=== PATIENT | female | born 1980 | race American Indian/Alaskan Native ===

== ENCOUNTER 2017-05-07 16:40 | Emergency (ER) | payer MEDICAID ==
--- NOTE | 2017-05-07 16:42 | ED PDOC ---
Arrival/HPI - General Time Seen by Provider: 05/07/17 16:41 Historian: Patient - History of Present Illness Narrative History of Present Illness (Text): 05/07/17 16:41 37 y/o female, no significant pmh, nkda, c/o coughing/runny nose/bodyache and fatigue x 2 days with acute onset. Productive coughing, no chest pain or shortness of breath, admits runny nose and bodyache, no recent traveling, no night sweat, no urinary symptoms, no rash, no nausea or vomiting, no other medical or psychological complaints. Past Medical History - Provider Review Nursing Documentation Reviewed: Yes Family/Social History - Physician Review Nursing Documentation Reviewed: Yes Family/Social History: Unknown Family HX Allergies/Home Meds Allergies/Adverse Reactions: Allergies CT SCAN DYE Allergy (Uncoded 05/07/17 16:43) ANAPHYLAXIS Review of Systems - Review of Systems Constitutional: Fatigue. absent: Fevers Eyes: absent: Vision Changes ENT: Rhinorrhea. absent: Hearing Changes Respiratory: Cough, Sputum. absent: SOB, Wheezing Cardiovascular: absent: Chest Pain, Palpitations Gastrointestinal: absent: Abdominal Pain, Diarrhea, Nausea, Vomiting Musculoskeletal: Myalgias. absent: Arthralgias, Back Pain Skin: absent: Rash, Pruritis Neurological: absent: Headache, Dizziness Psychiatric: absent: Anxiety, Depression, Suicidal Ideation Physical Exam Vital Signs Reviewed: Yes Vital Signs Temp Pulse Resp BP Pulse Ox 05/07/17 18:27 98.5 F 73 19 117/83 100 05/07/17 16:44 98.6 F 90 16 121/84 100 Temperature: Afebrile Blood Pressure: Normal Pulse: Regular Respiratory Rate: Normal Appearance: Positive for: Well-Appearing, Non-Toxic, Comfortable Pain Distress: None Mental Status: Positive for: Alert and Oriented X 3 - Systems Exam Head: Present: Atraumatic, Normocephalic, Other (no sinus tenderness) Pupils: Present: PERRL Extroacular Muscles: Present: EOMI Conjunctiva: Present: Normal Ears: Present: NORMAL TM, Normal Canal. No: Erythema Mouth: Present: Moist Mucous Membranes Pharnyx: Present: Normal. No: ERYTHEMA, EXUDATE, TONSILS ENLARGED Nose (Internal): Present: Normal Inspection, No Active Bleeding, Rhinorrhea. No : Septal Hematoma, Epistaxis Neck: Present: Normal Range of Motion, Trachea Midline. No: Meningeal Signs, MIDLINE TENDERNESS, Lymphadenopathy Respiratory/Chest: Present: Clear to Auscultation, Good Air Exchange. No: Respiratory Distress, Accessory Muscle Use, Wheezes, Decreased Breath Sounds, Rales, Retracting, Rhonchi, Tachypneic, Tender to Palpation Cardiovascular: Present: Regular Rate and Rhythm, Normal S1, S2. No: Murmurs Abdomen: Present: Normal Bowel Sounds. No: Tenderness, Distention, Peritoneal Signs, Rebound, Guarding Back: Present: Normal Inspection Upper Extremity: Present: Normal Inspection. No: Cyanosis, Edema Lower Extremity: Present: Normal Inspection. No: Edema Neurological: Present: GCS=15, Speech Normal, Motor Func Grossly Intact, Gait Normal, Memory Normal Skin: Present: Warm, Dry, Normal Color. No: Rashes Psychiatric: Present: Alert, Oriented x 3, Normal Insight, Normal Concentration Medical Decision Making ED Course and Treatment: 05/07/17 17:01 -rapid flu -chest xray -tylenol -observe and reassess 05/07/17 18:28 -xray wet read show no active disease -Pt. is not wheezing/crackles, vitally stable, feels better with the tylenol -Rapid flu is negative but clinical suspicious is moderate to high. -Discharge home with tamiflu, tylenol, tessalon, bed rest, follow up with your own pmd within 2 days, return to ER for any new or worsening signs or symtoms. - Lab Interpretations Lab Results: Lab Results 05/07/17 16:57: Influenza Typ A,B (EIA) Negative for flu a/b - RAD Interpretation Radiology Orders: 05/07/17 17:01 CHEST TWO VIEWS (PA/LAT) [RAD] Stat HISTORY: cough COMPARISON: None available. TECHNIQUE: Chest PA and lateral FINDINGS: LUNGS: Minimal basilar atelectasis. No focal consolidation. Please note that chest x-ray has limited sensitivity for the detection of pulmonary masses. PLEURA: No significant pleural effusion identified. No definite pneumothorax . CARDIOVASCULAR: Heart size appears within normal limits. OSSEOUS STRUCTURES: No acute osseous abnormality identified. VISUALIZED UPPER ABDOMEN: Unremarkable. OTHER FINDINGS: None. IMPRESSION: No focal consolidation identified. Minimal basilar atelectasis. Crown Assembly Machine Operator: Radiologist - Medication Orders Current Medication Orders: Discontinued Medications Acetaminophen (Tylenol 325mg Tab) 650 mg PO STAT STA Stop: 05/07/17 16:59 Last Admin: 05/07/17 17:21 Dose: 650 mg MAR Pain/Vitals Document 05/07/17 17:21 LA (Rec: 05/07/17 17:22 LA [id number]) Pain Reassessment Is This A Pain ReAssessment? No Sleep Is patient sleeping during reassessment? No Presence of Pain Presence of Pain Yes Location Pain Location Body Site Generalized Intensity 5 Scale Used Numeric - PA / PIPE ASSEMBLY WORKER / Resident Statement MD/DO has reviewed & agrees with the documentation as recorded. Disposition/Present on Arrival - Present on Arrival Any Indicators Present on Arrival: No History of DVT/PE: No History of Uncontrolled Diabetes: No Urinary Catheter: No History of Decub. Ulcer: No - Disposition Have Diagnosis and Disposition been Completed?: Yes Diagnosis: Flu-like symptoms Disposition: HOME/ ROUTINE Disposition Time: 17:01 Patient Plan: Discharge Patient Problems: Current Active Problems Problem Status Onset Flu-like symptoms Acute Condition: IMPROVED Additional Instructions: -Discharge home with tamiflu, tylenol, tessalon, bed rest, follow up with your own pmd within 2 days, return to ER for any new or worsening signs or symtoms. Prescriptions: Acetaminophen [Tylenol 325mg tab] 2 tab PO QID PRN #35 tab PRN Reason: Other Benzonatate [Tessalon Perles] 100 mg PO TID PRN #30 sgl PRN Reason: Other Oseltamivir [Tamiflu] 75 mg PO BID #10 cap Referrals: PCP,NO [Primary Care Provider] - Follow up with primary [facility] [place] [Outside] - Follow up with primary Forms: WORK NOTE
[2017-05-07 16:59] VITALS: O2SAT 100
[2017-05-07 18:28] VITALS: BP 117/83; PULSE 73; RESP 19; TEMP 98.5
--- NOTE | 2017-05-07 18:35 | RAD ---
HISTORY: cough COMPARISON: None available. TECHNIQUE: Chest PA and lateral FINDINGS: LUNGS: Minimal basilar atelectasis. No focal consolidation. Please note that chest x-ray has limited sensitivity for the detection of pulmonary masses. PLEURA: No significant pleural effusion identified. No definite pneumothorax . CARDIOVASCULAR: Heart size appears within normal limits. OSSEOUS STRUCTURES: No acute osseous abnormality identified. VISUALIZED UPPER ABDOMEN: Unremarkable. OTHER FINDINGS: None. IMPRESSION: No focal consolidation identified. Minimal basilar atelectasis.
== END 2017-05-07 19:03 | disposition home or self-care (01) ==
LOC: ED 16:40
DX: J11.1 Influenza due to unidentified influenza virus with other respiratory manifestations (principal)

== ENCOUNTER 2017-06-16 19:26 | Emergency (ER) | payer MEDICAID ==
--- NOTE | 2017-06-16 23:51 | ED PDOC ---
Arrival/HPI - General Historian: Patient - History of Present Illness Time/Duration: Other (2 days) Symptom Course: Unchanged <Brigida Patel - Last Filed: 06/16/17 23:47> <Armond Burt - Last Filed: 06/17/17 00:13> - General Chief Complaint: Female Genitourinary Time Seen by Provider: 06/16/17 20:40 - History of Present Illness Narrative History of Present Illness (Text): 06/16/17 23:47 37-year-old female presents today with concerns for vaginal irritation. Patient states she started using new pads and then noticed an irritated area along the lower aspects of the labia. Patient denies fevers or chills. Denies any urinary symptoms. Patient denies vaginal discharge. Patient states she was recently treated for a yeast infection about 3 weeks ago. Patient denies abdominal pain. No other complaints. (Brigida Patel) Past Medical History - Provider Review Nursing Documentation Reviewed: Yes - Travel History Have you recently traveled outside [place] w/in the past 3 mons?: No - Cardiac Hx Cardiac Disorders: No - Pulmonary Hx Respiratory Disorders: No - Neurological Hx Neurological Disorder: No - HEENT Hx HEENT Disorder: No - Renal Hx Renal Disorder: No - Endocrine/Metabolic Hx Endocrine Disorders: No - Hematological/Oncological Hx Blood Disorders: No - Integumentary Hx Dermatological Disorder: No - Musculoskeletal/Rheumatological Hx Musculoskeletal Disorders: No - Gastrointestinal Hx Gastrointestinal Disorders: Yes Hx Gastroesophageal Reflux: Yes - Genitourinary/Gynecological Hx Genitourinary Disorders: No - Psychiatric Hx Psychophysiologic Disorder: No Hx Substance Use: No - Surgical History Other/Comment: ENDOSCOPY <Brigida Patel - Last Filed: 06/16/17 23:47> Family/Social History - Physician Review Nursing Documentation Reviewed: Yes Family/Social History: Unknown Family HX Smoking Status: Never Smoked Hx Alcohol Use: No Hx Substance Use: No <Brigida Patel - Last Filed: 06/16/17 23:47> Allergies/Home Meds <Brigida Patel - Last Filed: 06/16/17 23:47> <Armond Burt - Last Filed: 06/17/17 00:13> Allergies/Adverse Reactions: Allergies CT SCAN DYE Allergy (Uncoded 06/16/17 20:32) ANAPHYLAXIS Home Medications: Home Meds Medication Instructions Recorded Confirmed No Known Home Med 06/16/17 06/16/17 Review of Systems - Review of Systems Constitutional: absent: Fatigue, Fevers Respiratory: absent: SOB, Cough Cardiovascular: absent: Chest Pain, Palpitations Gastrointestinal: absent: Abdominal Pain, Constipation, Diarrhea, Nausea, Vomiting Genitourinary Female: Other (vaginal irritation). absent: Dysuria, Urine Output Changes, Vaginal Bleeding, Vaginal Discharge Skin: Rash Neurological: absent: Headache, Dizziness Psychiatric: absent: Anxiety, Depression <Brigida Patel - Last Filed: 06/16/17 23:47> Physical Exam Vital Signs Reviewed: Yes Temperature: Afebrile Blood Pressure: Normal Pulse: Regular Respiratory Rate: Normal Appearance: Positive for: Well-Appearing, Non-Toxic, Comfortable Pain Distress: None Mental Status: Positive for: Alert and Oriented X 3 - Systems Exam Head: Present: Atraumatic Mouth: Present: Moist Mucous Membranes Neck: Present: Normal Range of Motion Respiratory/Chest: Present: Clear to Auscultation Cardiovascular: Present: Regular Rate and Rhythm Abdomen: No: Tenderness, Rebound, Guarding Genitourinary/Pelvic Exam: Present: Other (there is a small area of abrasion/ irritation noted to chaparoned by SUPERVISOR SHIPFITTERSESDRAS Wood). No: Normal External Genitalia , Vaginal Discharge, Vaginal Bleeding, Vaginal Lesions, Adenexal Tenderness, Odor Neurological: Present: GCS=15, Speech Normal Skin: Present: Warm, Dry, Normal Color Psychiatric: Present: Alert, Oriented x 3 <Brigida Patel - Last Filed: 06/16/17 23:47> Vital Signs Temp Pulse Resp BP Pulse Ox 06/16/17 21:40 98 F 65 18 115/77 99 06/16/17 20:32 98.7 F 60 16 112/73 100 Medical Decision Making <Brigida Patel - Last Filed: 06/16/17 23:47> <Armond Burt - Last Filed: 06/17/17 00:13> ED Course and Treatment: 06/16/17 23:55 37-year-old female presents today with vaginal irritation 2 days after using a new pad for her period. Patient nontoxic well-appearing no distress with stable vital signs There is any irritation noted to the inferior aspect of the labia and perineal region without ulcerations, vaginal lesions. pt denies hx of herpes; no vesicles. will check HSV will send GC/chlamydia cultures. pt does not want to start acyclovir because she does not believe that it is herpes. advised f/u with MOBILE HEAVY EQUIPMENT MECHANIC. advised return if symptoms worsen,persist or if new symptoms develop. Patient verbalizes understanding of discharge instructions and need for immediate followup. all aspects of this case were discussed the attending of record. impression; vaginal irritation keep area clean and dry follow up with marketing finance manager within the next 2 days return if symptoms worsen, persist or if new symptoms develop. (Brigida Patel) - PA / COMPOSITE WORKER / Resident Statement / has reviewed & agrees with the documentation as recorded. <Armond Burt - Last Filed: 06/17/17 00:13> Disposition/Present on Arrival - Present on Arrival Any Indicators Present on Arrival: No History of DVT/PE: No History of Uncontrolled Diabetes: No Urinary Catheter: No History of Decub. Ulcer: No History Surgical Site Infection Following: None - Disposition Have Diagnosis and Disposition been Completed?: Yes Disposition Time: 23:58 Patient Plan: Discharge <Brigida Patel - Last Filed: 06/16/17 23:47> <Armond Burt - Last Filed: 06/17/17 00:13> - Disposition Diagnosis: Vaginal irritation Disposition: HOME/ ROUTINE Condition: GOOD Additional Instructions: keep area clean and dry follow up with marketing finance manager within the next 2 days return if symptoms worsen, persist or if new symptoms develop. Referrals: Shayy Her [Primary Care Provider] - Follow up with primary Richie Jordan MD [Staff Provider] - Follow up with primary Forms: [employer] (Spanish), WORK NOTE
[2017-06-17 00:11] VITALS: BP 115/77; PULSE 65; RESP 18; TEMP 98; O2SAT 99
== END 2017-06-17 00:10 | disposition home or self-care (01) ==
LOC: ED 19:26
DX: N89.8 Other specified noninflammatory disorders of vagina (principal)

== ENCOUNTER 2017-08-24 21:59 | Emergency (ER) | payer MEDICAID ==
[2017-08-24 23:05] VITALS: O2SAT 98
[2017-08-24] MEDS ORDERED: Amoxicillin-Clav 875-125 mg Tab PO STA (23:30)
--- NOTE | 2017-08-24 23:42 | ED PDOC ---
Arrival/HPI - General Historian: Patient - History of Present Illness Symptom Onset: Gradual Symptom Course: Worsening Quality: Aching, Pressure Severity Level: Mild <Brigida Patel - Last Filed: 08/24/17 23:29> <Armond Burt - Last Filed: 08/25/17 00:41> - General Chief Complaint: ENT Problem Time Seen by Provider: 08/24/17 22:49 - History of Present Illness Narrative History of Present Illness (Text): 08/24/17 23:46 37-year-old female presents today with a 2 day history of sore throat associated with worsening bilateral ear pain and pressure. Patient states approximately 2 weeks ago she was treated for sinus infection with Zithromax. Patient states symptoms improved but then over the past few days symptoms have returned and have been worsening. Patient states she feels as if there is a ringing in the ears bilaterally greatest on the left side. Patient denies fevers or chills. She is complaining of nasal congestion. She is complaining of postnasal drip. She is complaining of burning sensation in the throat and pain with swallowing. Patient denies sick contacts. No other complaints (Brigida Patel) Past Medical History - Provider Review Nursing Documentation Reviewed: Yes - Travel History Have you recently traveled outside [place] w/in the past 3 mons?: No - Infectious Disease Hx of Infectious Diseases: None - Cardiac Hx Cardiac Disorders: No - Pulmonary Hx Respiratory Disorders: No - Neurological Hx Neurological Disorder: No - HEENT Hx HEENT Disorder: No - Renal Hx Renal Disorder: No - Endocrine/Metabolic Hx Endocrine Disorders: No - Hematological/Oncological Hx Blood Disorders: No - Integumentary Hx Dermatological Disorder: No - Musculoskeletal/Rheumatological Hx Musculoskeletal Disorders: No - Gastrointestinal Hx Gastrointestinal Disorders: Yes Hx Gastroesophageal Reflux: Yes - Genitourinary/Gynecological Hx Genitourinary Disorders: No - Psychiatric Hx Psychophysiologic Disorder: No Hx Substance Use: No - Surgical History Other/Comment: ENDOSCOPY - Anesthesia Hx Anesthesia: No <Brigida Patel - Last Filed: 08/24/17 23:29> Family/Social History - Physician Review Nursing Documentation Reviewed: Yes Family/Social History: Unknown Family HX Smoking Status: Never Smoked Hx Alcohol Use: No Hx Substance Use: No <Brigida Patel - Last Filed: 08/24/17 23:29> Allergies/Home Meds <Brigida Patel - Last Filed: 08/24/17 23:29> <Armond Burt - Last Filed: 08/25/17 00:41> Allergies/Adverse Reactions: Allergies CT SCAN DYE Allergy (Uncoded 08/24/17 22:48) ANAPHYLAXIS Review of Systems - Review of Systems Constitutional: absent: Fatigue, Fevers ENT: Sore Throat, Sinus Congestion Respiratory: Cough. absent: SOB Cardiovascular: absent: Chest Pain, Palpitations Gastrointestinal: absent: Abdominal Pain, Nausea, Vomiting Genitourinary Female: absent: Dysuria Musculoskeletal: absent: Arthralgias Skin: absent: Rash, Pruritis Neurological: absent: Headache, Dizziness <Brigida Patel - Last Filed: 08/24/17 23:29> Physical Exam Vital Signs Reviewed: Yes Temperature: Afebrile Blood Pressure: Normal Pulse: Regular Respiratory Rate: Normal Appearance: Positive for: Well-Appearing, Non-Toxic, Comfortable Pain Distress: None Mental Status: Positive for: Alert and Oriented X 3 - Systems Exam Head: Present: Atraumatic. No: Tenderness Mouth: Present: Moist Mucous Membranes, Normal Lips, Normal Tounge, Normal Teeth. No: Drooling, Trismus Pharnyx: Present: ERYTHEMA. No: EXUDATE, TONSILS ENLARGED, Peritonsilar Swelling, Uvular Deviation, Muffled/Hoarse Voice, Strider, Soft Palate/Uvular Edema Nose (External): Present: Atraumatic Nose (Internal): Present: Engorged, Clear Mucous Neck: Present: Normal Range of Motion, Trachea Midline. No: Lymphadenopathy Respiratory/Chest: Present: Clear to Auscultation, Good Air Exchange. No: Respiratory Distress, Accessory Muscle Use, Wheezes, Rhonchi, Tachypneic Cardiovascular: Present: Regular Rate and Rhythm, Normal S1, S2. No: Murmurs Abdomen: No: Tenderness, Rebound, Guarding Neurological: Present: GCS=15 Skin: Present: Warm, Dry, Normal Color. No: Rashes Psychiatric: Present: Alert, Oriented x 3 <Brigida Patel - Last Filed: 08/24/17 23:29> Vital Signs Temp Pulse Resp BP Pulse Ox 08/24/17 22:45 99.4 F 76 18 119/77 98 Medical Decision Making <Brigida Patel - Last Filed: 08/24/17 23:29> <Armond Burt - Last Filed: 08/25/17 00:41> ED Course and Treatment: 08/24/17 23:50 Patient is nontoxic well appearing in no distress. Vital signs are stable Tolerating p.o. fluids and solids pt with b/l ear pain, nasal congestion and post nasal drip with sore throat. augmentin Po motrin PO will start patient on augmentin for sinusitis, advised flonase and f/u with ENT. I advised follow up with primary care physician within the next 2 days, advised to increase fluids take medications as prescribed and return if symptoms worsen persist or if new symptoms develop Patient verbalizes understanding of discharge instructions and need for immediate followup. all aspects of this case were discussed the attending of record. IMPRESSION; pharyngitis, sinusitis Motrin every 6 hours as needed for pain/fever reduction Increase fluids Flonase; 2 sprays each nostril once daily Augmentin 1 tablet twice daily x 10 days. Follow up primary care physician within the next 2 days Follow up with the ENT specialist within the next 2 days. Saltwater gargles, throat lozenges Return if symptoms worsen persist or if the symptoms develop (Brigida Patel) - Medication Orders Current Medication Orders: Discontinued Medications Amoxicillin/Clavulanate Potassium (Augmentin 875 Mg-125 Mg Tab) 1 tab PO STAT STA PRN Reason: Protocol Stop: 08/24/17 23:31 Last Admin: 08/24/17 23:55 Dose: 1 tab Ibuprofen (Motrin Tab) 600 mg PO STAT STA Stop: 08/24/17 23:31 Last Admin: 08/24/17 23:55 Dose: 600 mg - PA / BUILDING MAINTENANCE WORKER / Resident Statement /DO has reviewed & agrees with the documentation as recorded. <Armond Burt - Last Filed: 08/25/17 00:41> Disposition/Present on Arrival - Present on Arrival Any Indicators Present on Arrival: No History of DVT/PE: No History of Uncontrolled Diabetes: No Urinary Catheter: No History of Decub. Ulcer: No History Surgical Site Infection Following: None - Disposition Have Diagnosis and Disposition been Completed?: Yes Disposition Time: 23:31 Patient Plan: Discharge <Brigida Patel - Last Filed: 08/24/17 23:29> <Armond Burt - Last Filed: 08/25/17 00:41> - Disposition Diagnosis: Pharyngitis, Sinusitis Disposition: HOME/ ROUTINE Condition: GOOD Discharge Instructions (ExitCare): Sinusitis in Adults, Sore Throat in Adults Additional Instructions: Motrin every 6 hours as needed for pain/fever reduction Increase fluids Flonase; 2 sprays each nostril once daily Augmentin 1 tablet twice daily x 10 days. Follow up primary care physician within the next 2 days Follow up with the ENT specialist within the next 2 days. Saltwater gargles, throat lozenges Return if symptoms worsen persist or if the symptoms develop Prescriptions: Amoxicillin/Clavulanate [Augmentin 875 MG-125 MG] 1 tab PO BID #20 tab Fluticasone Nasal [Flonase] 2 spr NS DAILY #1 spr Ibuprofen [Motrin] 600 mg PO Q6H PRN #20 tab PRN Reason: pain/fever reduction Referrals: Shayy Her [Primary Care Provider] - Follow up with primary Jonel Campbell DO [Doctor Osteopathy] - Follow up with primary Forms: [employer] (Swedish), WORK NOTE
[2017-08-25 01:37] VITALS: BP 128/72; PULSE 72; RESP 17; TEMP 98.9
== END 2017-08-25 00:57 | disposition home or self-care (01) ==
LOC: ED 21:59
DX: J02.9 Acute pharyngitis, unspecified (principal); J32.9 Chronic sinusitis, unspecified

== ENCOUNTER 2018-03-05 23:56 | Emergency (ER) | payer MEDICAID ==
[2018-03-06 00:10] VITALS: BMI 22.5
[2018-03-06 00:12] VITALS: TEMP 98.4; O2SAT 100
[2018-03-06] MEDS ORDERED: Sodium Chloride 0.9% 1,000 ML IV STA (00:17)
--- NOTE | 2018-03-06 00:21 | ED PDOC ---
Arrival/HPI - General Chief Complaint: Chest Pain Historian: Patient - History of Present Illness Narrative History of Present Illness (Text): 03/06/18 00:18 38 y/o female, no significant pmh, nkda, c/o epigastric chest pain x 2 hours while laying down to sleep. Pt. stated that she had dinner around 7pm, been having epigastric gnawing pain, aggravated by laying down, feels nausea, no vomiting, no palpitation, no exertional chest pain, no night sweat, no numbness or tinging, no palpitation, no other medical or psychological complaints. Past Medical History - Provider Review Nursing Documentation Reviewed: Yes - Infectious Disease Hx of Infectious Diseases: None - Cardiac Hx Cardiac Disorders: No - Pulmonary Hx Respiratory Disorders: No - Neurological Hx Neurological Disorder: No - HEENT Hx HEENT Disorder: No - Renal Hx Renal Disorder: No - Endocrine/Metabolic Hx Endocrine Disorders: No - Hematological/Oncological Hx Blood Disorders: No - Integumentary Hx Dermatological Disorder: No - Musculoskeletal/Rheumatological Hx Musculoskeletal Disorders: No - Gastrointestinal Hx Gastrointestinal Disorders: Yes Hx Gastroesophageal Reflux: Yes - Genitourinary/Gynecological Hx Genitourinary Disorders: No - Psychiatric Hx Psychophysiologic Disorder: No Hx Substance Use: No - Surgical History Other/Comment: ENDOSCOPY - Anesthesia Hx Anesthesia: No Family/Social History - Physician Review Nursing Documentation Reviewed: Yes Family/Social History: Unknown Family HX Smoking Status: Never Smoked Hx Alcohol Use: No Hx Substance Use: No Allergies/Home Meds Allergies/Adverse Reactions: Allergies Iodinated Contrast- Oral and IV Dye Allergy (Verified 03/06/18 00:10) ANAPHYLAXIS CT SCAN DYE Allergy (Uncoded 08/24/17 22:48) ANAPHYLAXIS Review of Systems - Review of Systems Constitutional: absent: Fatigue, Fevers Eyes: absent: Vision Changes ENT: absent: Hearing Changes Respiratory: absent: SOB, Cough Cardiovascular: Chest Pain Gastrointestinal: Abdominal Pain. absent: Diarrhea, Nausea Skin: absent: Rash, Pruritis Neurological: absent: Headache, Dizziness Psychiatric: absent: Anxiety, Depression, Suicidal Ideation Physical Exam Vital Signs Reviewed: Yes Vital Signs Temp Pulse Resp BP Pulse Ox 03/06/18 00:12 98.4 F 65 16 111/74 100 Temperature: Afebrile Blood Pressure: Normal Pulse: Regular Respiratory Rate: Normal Appearance: Positive for: Well-Appearing, Non-Toxic, Comfortable Pain Distress: Moderate Mental Status: Positive for: Alert and Oriented X 3 - Systems Exam Head: Present: Atraumatic, Normocephalic Pupils: Present: PERRL Extroacular Muscles: Present: EOMI Conjunctiva: Present: Normal Mouth: Present: Moist Mucous Membranes Neck: Present: Normal Range of Motion Respiratory/Chest: Present: Clear to Auscultation, Good Air Exchange. No: Respiratory Distress, Accessory Muscle Use, Wheezes, Decreased Breath Sounds, Rales, Retracting, Rhonchi, Tachypneic, Tender to Palpation Cardiovascular: Present: Regular Rate and Rhythm, Normal S1, S2. No: Murmurs Abdomen: Present: Tenderness (epigastric tenderness, negative padron signs. ), Normal Bowel Sounds. No: Distention, Peritoneal Signs, Rebound, Guarding, Rovsing's Sign Present, Hernias, Mass/Organomegaly Back: Present: Normal Inspection. No: CVA Tenderness Upper Extremity: Present: Normal Inspection. No: Cyanosis, Edema Lower Extremity: Present: Normal Inspection. No: Edema Neurological: Present: GCS=15, CN II-XII Intact, Speech Normal Skin: Present: Warm, Dry, Normal Color. No: Rashes Psychiatric: Present: Alert, Oriented x 3, Normal Insight, Normal Concentration Medical Decision Making ED Course and Treatment: 03/06/18 00:20 -labs -ekg -cxr -IVF/pepcid/reglan/toradol -Observe and reassess 03/06/18 01:14 -Urine hcg is negative -Chest xray ER wet read: no active disease -Labs are nonsignificant -Mg within normal limit -Lipase within normal limit -Trop is negative. -EKG: NSR @ 67 BPM, no ST elevation or depression, no T wave inversion. -PERC is negative -HEART score is low -Pt. feels much better, pain resolved, asymptomatic now, will discharge home. -Discharge home with pepcid, tylenol, bed rest, follow up with your own pmd and tax examiner/GI within 2 days, return to the ER for any new or worsening signs or symptoms. - RAD Interpretation Radiology Orders: 03/06/18 00:17 CHEST PORTABLE [RAD] Stat no active disease. Timber Estimator: Radiologist - EKG Interpretation EKG Interpretation (Text): 03/06/18 00:21 EKG: NSR @ 67 BPM, no ST elevation or depression, no T wave inversion. Interpreted by ED Physician: Yes Type: 12 lead EKG - Medication Orders Current Medication Orders: Famotidine (Pepcid) 20 mg IVP STAT STA Stop: 03/06/18 00:17 Sodium Chloride (Sodium Chloride 0.9%) 1,000 mls @ 999 mls/hr IV .Q1H1M STA Stop: 03/06/18 01:17 Ketorolac Tromethamine (Toradol) 30 mg IVP STAT STA Stop: 03/06/18 00:17 Metoclopramide HCl (Reglan) 10 mg IVP STAT STA Stop: 03/06/18 00:18 - PA / ALMOND SORTER / Resident Statement MD/DO has reviewed & agrees with the documentation as recorded. Disposition/Present on Arrival - Present on Arrival Any Indicators Present on Arrival: No History of DVT/PE: No History of Uncontrolled Diabetes: No Urinary Catheter: No History of Decub. Ulcer: No History Surgical Site Infection Following: None - Disposition Have Diagnosis and Disposition been Completed?: Yes Diagnosis: Epigastric pain, Atypical chest pain Disposition: HOME/ ROUTINE Disposition Time: :14 Patient Plan: Discharge Condition: IMPROVED Discharge Instructions (ExitCare): Chest Pain (ED) Additional Instructions: -Discharge home with pepcid, tylenol, bed rest, follow up with your own pmd and tax examiner/GI within 2 days, return to the ER for any new or worsening signs or symptoms. Prescriptions: Acetaminophen [Tylenol] 2 cap PO QID PRN #30 capsule PRN Reason: Other Famotidine [Pepcid] 20 mg PO BID #30 tab Referrals: Rajan Garcia MD [Staff Provider] - Follow up with primary Kiko Diallo MD [Medical Doctor] - Follow up with primary [facility] at [facility] [place] [Outside] - Follow up with primary Forms: [employer] (Peruvian), WORK NOTE
[2018-03-06 00:36] LABS: BASO # 0.01 K/mm3 (0.0-2.0); BASO % 0.2 % (0.0-3.0); EOS % 0.6 % (1.5-5.0); GRAN # 4.06 (1.4-6.5); GRAN % 65.7 % (50.0-68.0); HEMOGLOBIN 12.9 g/dL (12.0-16.0); LYMPH # 1.6 (1.2-3.4); LYMPH % 25.6 % (22.0-35.0); MEAN CELL VOLUME 92.8 fl (80.0-105.0); MEAN CORPUSCULAR HEMOGLOBIN 32.1 pg (25.0-35.0); MEAN CORPUSCULAR HGB CONC 34.6 g/dl (31.0-37.0); MEAN PLATELET VOLUME 9.6 fl (7.0-11.0); MONO # 0.5 (0.1-0.6); MONO % 7.9 % (1.0-6.0); RBC 4.02 10^6/uL (3.5-6.1); RED CELL DISTRIBUTION WIDTH 12.1 % (11.5-14.5); WHITE BLOOD COUNT 6.2 10^3/uL (4.5-11.0)
[2018-03-06 00:43] LABS: ALB/GLOB RATIO 1.3 (1.1-1.8); ALBUMIN 3.9 g/dL (3.0-4.8); ALT/SGPT 22 U/L (7-56); AST/SGOT 25 U/L (14-36); BLOOD UREA NITROGEN 7 mg/dL (7-21); CALCIUM 8.8 mg/dL (8.4-10.5); GFR NON-AFRICAN AMERICAN > 60; LIPASE 117 U/L (23-300)
[2018-03-06 00:53] LABS: TROPONIN I < 0.01 ng/mL
[2018-03-06 01:29] VITALS: BP 124/79; PULSE 68; RESP 17
[2018-03-06 07:42] LABS: URINE BILIRUBIN NEGATIVE (NEGATIVE); URINE BLOOD LARGE (NEGATIVE); URINE GLUCOSE (UA) NEGATIVE (NEGATIVE); URINE LEUKOCYTE ESTERASE TRACE Leu/uL (NEGATIVE); URINE PROTEIN NEGATIVE mg/dL (<30 mg/dL); URINE UROBILINOGEN 0.2 E.U./dL (<1 E.U./dL)
[2018-03-06 07:43] LABS: URINE APPEARANCE SL CLOUDY (CLEAR); URINE COLOR LIGHT YELLOW (YELLOW)
[2018-03-06 08:25] LABS: URINE BACTERIA MANY /hpf; URINE RBC 25 - 30 /hpf (0-2)
--- NOTE | 2018-03-06 09:38 | CARD ---
APPROVED REPORT Date of service: 03/06/2018 EKG Measurement Heart [id number] <Conclusion> Normal sinus rhythm Normal ECG
--- NOTE | 2018-03-06 10:14 | RAD ---
Date of service: 03/06/2018 HISTORY: chest pain COMPARISON: No prior. FINDINGS: LUNGS: No active pulmonary disease. PLEURA: No significant pleural effusion identified, no pneumothorax apparent. CARDIOVASCULAR: No aortic atherosclerotic calcification present. Normal cardiac size. No pulmonary vascular congestion. OSSEOUS STRUCTURES: No significant abnormalities. VISUALIZED UPPER ABDOMEN: Normal. OTHER FINDINGS: None. IMPRESSION: No active disease.
== END 2018-03-06 01:24 | disposition home or self-care (01) ==
LOC: ED 23:56
DX: R07.89 Other chest pain (principal); R10.13 Epigastric pain; K21.9 Gastro-esophageal reflux disease without esophagitis
CPT/HCPCS: 71045; 80053; 81001; 83690; 83735; 84484; 85025; 87086; 93005; 96361; 96374; 96375; 99283; J1885; J2765; J7030